=== PATIENT | female | born 1950 | race Caucasian/White ===

== ENCOUNTER 2017-03-19 13:35 | Day surgery (SDC) | payer MEDICARE, OTHER ==
[~2017-03-19] VITALS: Ht 162.6 cm; Wt 81.7 kg
[~2017-03-19 13:35] MED LIST: ADV250INH IH; AMLO5TAB2 PO; ATOR20TA PO; AZEL137S11 NS; OMEP20CA11 PO; Sodium Chloride LOK Flush 10 mL Syringe IV PRN; TOLT1TAB2 PO; TRIA1CAP5 PO; fentaNYL-PF 50 mCg/mL 2 mL Inj IVPUSH PRN
[2017-03-19 13:49] VITALS: BP 138/77; PULSE 71; RESP 16; O2SAT 96
[2017-03-19] MEDS: 0.9% Sodium Chloride 1,000 ML IV SCH ×2 (14:04→15:07)
[2017-03-19 15:13] VITALS: BP 120/60; PULSE 63; RESP 15; O2SAT 95
[2017-03-19 15:27] VITALS: BP 116/68; PULSE 68; RESP 16; O2SAT 100
--- NOTE | 2017-03-19 15:39 | ENDO ---
[address] [address] ENDOSCOPY PROCEDURE PATIENT: DELMY DAVIS : 1950 MR#: [id number] ADMIT: 03/19/2017 JOB ID: [id number] DATE OF PROCEDURE: 03/19/2017 PRIMARY PROVIDER: LUPE Bowden PROCEDURE: Esophagogastroduodenoscopy with biopsies. INDICATIONS: A 66-year-old female with short-segment nondysplastic Perry's, returning for surveillance. EQUIPMENT: GIFH-190 SEDATION: 4 mg Versed and 100 mcg fentanyl. COMPLICATIONS: None identified. PROCEDURE INFORMATION: After the risks and benefits were explained, written and verbal informed consent was obtained. The patient was brought into the endoscopy suite and placed into the left lateral decubitus position. Sedation was achieved as above. The scope introduced into the mouth through the bite block, and advanced under direct visualization to the second portion of the duodenum. The scope was slowly withdrawn to carefully examine the mucosa for any defects or lesions. Retroflexed views were accomplished in the stomach. The stomach was decompressed. The scope removed from the patient who tolerated the procedure well. FINDINGS: 1. Duodenum: No significant pathology identified from the bulb through to the second portion. 2. Stomach: No significant pathology identified throughout. The patient belched quite a bit during the exam and seemed to have a difficult time retaining any element of air insufflation. I did not see any overt pathology, certainly no all ulcers, mass lesions or outlet obstruction. Retroflexed views of the LES were rather unremarkable. 3. Esophagus: The squamocolumnar junction generally correlated with the top of the gastric folds. However in the 3-6 o'clock location, there appeared to be a tongue of Perry's. This measured out to be somewhere in the neighborhood of about 0.5 cm (C0, M0.5 by the [place] criteria). A single biopsy was taken from this tongue of Perry's. I did not see any evidence of neoplasia, no erosions, no ulcers. No evidence of any active inflammation at present time. Subtle sliding hiatal hernia noted. ENDOSCOPIC DIAGNOSES: 1. 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 2. Subtle sliding hiatal hernia. RECOMMENDATIONS: 1. Await histopathology. 2. Continue anti-reflux regimen (the patient currently reports taking 20 mg Prilosec once daily.) 3. If nondysplastic Perry's is confirmed, repeat EGD in three years.
--- NOTE | 2017-03-21 14:12 | PATH ---
SURGICAL PATHOLOGY Attending Physician:Mervat Cabezas CASE STATUS: Signed Out PATIENT NAME: DELMY DAVIS PID: [id number] : 1950 DATE COLLECTED:03/19/2017 00:00 SPECIMEN: Esophagus, Biopsy CLINICAL HISTORY: 1. DISTAL ESOPHAGUS BXS FINAL DIAGNOSIS: 1.DISTAL ESOPHAGUS BIOPSIES: FRAGMENT OF CARDIA-TYPE MUCOSA WITH NO SQUAMOUS MUCOSA IDENTIFIED. Negative for specialized metaplasia of Perry' s-type esophagus. Chronic inflammation with mild reactive epithelial changes, but negative for dysplasia and malignancy. ICD10 K21.0 GROSS DESCRIPTION: The specimen is received in one formalin filled container labeled with the patient's name, sublabeled "distal esophagus" and consists of a 0.2 x 0.2 x 0.2 CM portion of tissue which is entirely submitted in one cassette. 03/20/2017 DAC MICRO DESCRIPTION: See diagnosis. ICD-9 CODES: CPT CODES: 1: 42721 Electronically Signed Out Uday Cooper MD [facility] [address], [place] [address] Technical component performed at [facility], [address] [place] [address] Ave[address], [place], [address]
== END 2017-03-19 23:59 | disposition home or self-care (01) ==
LOC: END 13:35
PROVIDERS: ATTEND Internal Medicine Gastroenterology
DX: K22.70 Barrett's esophagus without dysplasia (principal); K44.9 Diaphragmatic hernia without obstruction or gangrene
CPT/HCPCS: 43239; 88305; G0500; J2250; J3010; J7030